=== PATIENT | male | born 1950 | race Caucasian/White ===

== ENCOUNTER 2016-10-16 12:11 | Day surgery (SDC) | payer OTHER ==
[2016-10-12 15:36] LABS: HEMATOCRIT 40.5 % (40.0-51.0); HEMOGLOBIN 13.9 g/dL (13.6-17.8)
[2016-10-12 15:49] LABS: BUN (BLOOD UREA NITROGEN) 13 MG/DL (6-23); CALCIUM, SERUM 9.2 MG/DL (8.5-10.4); CHLORIDE, SERUM 104 MMOL/L (96-112); CO2 (CARBON DIOXIDE) 30 MMOL/L (24-34); CREATININE 1.31 MG/DL (0.70-1.30); GFR AFRICAN AMERICAN 65 ML/MIN (>=60); GFR NON AFRICAN AMERICAN 56 ML/MIN (>=60); GLUCOSE, SERUM 101 MG/DL (60-99); POTASSIUM, SERUM 3.9 MMOL/L (3.5-5.3); SODIUM, SERUM 143 MMOL/L (135-148)
--- NOTE | ~2016-10-16 | OP ---
Record Of Operation [facility] [address] [place] [place]. [address] NAME: TERRENCE CHRISTENSEN : 50 STATUS : [facility]#: [id number] AGE: 66 ADM/REG DATE : 10/16/16 MR#: [id number] REPORT SERV DATE: 10/16/16 DICTATED BY: AGUSTIN DUARTE DATE: 10/16/16 REPORT STATUS : Draft TRANSCRIBED BY: MODL DATE: 10/16/16 DATE OF PROCEDURE: PREOPERATIVE DIAGNOSES: 1. Incarcerated bilateral inguinal hernias, left greater than right. 2. Hypertension. 3. Benign prostatic hypertrophy with urinary retention. POSTOPERATIVE DIAGNOSES: 1. Bilateral incarcerated direct and indirect inguinal hernias. 2. Benign prostatic hypertrophy with intraoperative urinary retention of 800 mL. 3. Hypertension. PROCEDURE: Robotic bilateral incarcerated direct and indirect inguinal hernias with mesh. ANESTHESIA: General. SURGEON: Agustin Duarte M.D. ELECTRICAL TRYOUT PERSON: Reece. COMPLICATIONS: None. DRAINS: None. ESTIMATED BLOOD LOSS: 30 mL. FLUIDS: 2000 mL. FINDINGS: 1. The patient was noted to have a very large direct and indirect inguinal hernias that were incarcerated as well as a large direct and a small indirect inguinal hernia on the right. 2. Upon placement of the laparoscope prior to the procedure, the patient noted to a significantly distended bladder and a Clemente was placed on the table with 800 mL of urinary retention, therefore Clemente will be left after the procedure. OPERATIVE TECHNIQUE: The patient was brought to the operating room and placed on the table in supine position. He had preoperative antibiotics. He had sequential hose in place. He voided prior to procedure. He underwent general endotracheal anesthesia, was prepped and draped in sterile fashion, and a time-out was completed. He had previous TAP blocks per the anesthesia. A 15 blade knife was used to make a supraumbilical incision in the midline, and the Veress needle was inserted, and water drop test safely performed. 15 mm of pneumoperitoneum was obtained. A 12 mm trocar was inserted through the supraumbilical incision, and there was no evidence of Veress or trocar injury upon placement of laparoscope. The patient was noted to have the above bilateral inguinal hernias with Record Of Operation [facility] [address] [facility] [place]. [address] NAME: TERRENCE CHRISTENSEN : 50 STATUS : [facility] PAT#: [id number] AGE: 66 ADM/REG DATE : 10/16/16 MR#: [id number] REPORT SERV DATE: 10/16/16 DICTATED BY: AGUSTIN DUARTE DATE: 10/16/16 REPORT STATUS : Draft TRANSCRIBED BY: GARO DATE: 10/16/16 significant urinary retention. A Clemente catheter was placed with complete decompression of the bladder. The dissection began with the patient in Trendelenburg. The patient cart was brought to the bedside and it was docked. The instruments were then inserted under direct visualization. The scissor was used to score the peritoneum from the anterior iliac spine toward the median umbilical ligament several centimeters above the superior aspect of the indirect inguinal hernia. The preperitoneal space was then entered, and careful blunt dissection ensued distally from the medial umbilical ligament medially until Cheko's ligament was completely identified. It was dissected for approximately 2 cm below the Cheko's ligament and extended past midline toward the patient's left. At this point, the dissection then proceeded for the rest of the right side. The peritoneum was carefully reduced on the lateral aspect until the pubic tract and transversus arch were identified. The direct inguinal hernia sac was then carefully dissected away from the preperitoneal fat until it was completely reduced, this dissection continued, and the peritoneum was then reduced from the cord structures. The vas and neurovascular structures were identified and preserved throughout the procedure. Direct visualization of the peritoneum confirmed that the hernia was completely reduced. Of note, the laparoscope was inserted and bilateral hernias were confirmed. The ProGrip mesh that had been previously folded with a V-Loc suture and pieces of mesh was placed into the abdomen for future use. Two pieces of mesh were placed. The first ProGrip was then positioned and unfolded and pressed to the pelvic floor. The mesh began medially to the left side of midline and was unfolded completely, it went underneath Cheko's ligament for approximately 2 cm and completely covered the entire myopectineal space. At this point, attention was turned to the left side and the dissection proceeded exactly as described for the right. The patient was noted to have a larger indirect inguinal hernia sac, and it took more dissection. The direct hernia sac on the left side was very very large and after it was reduced, it was imbricated and it was reduced and secured back to the Cheko's ligament with a single Vicryl suture, and this was not enough, so therefore a 0 V-Loc suture was placed and reduced the sac to Cheko's ligament with the V-Loc suture. This suture was left in place to secure the mesh medially to Cheko's ligament, both pieces at the end of mesh placement on the right. The complete reduction of the hernia sac was confirmed with visualization of the peritoneum and the mesh was secured in position as described for the right side. Once again, the entire myopectineal space was covered on this side as well, and the two leaves of the mesh overlapped for approximately 1 cm medially. The remaining V-Loc suture that reduced the direct sac was used to reapproximate the 2 leaves of the mesh in the midline to Cheko's ligament and was then cut after several sutures. That suture was then removed and a single V-Loc suture was used to reapproximate the peritoneum on as the pneumoperitoneum was reduced to 8 with a single suture to close both sides. This suture was also removed. There was no evidence of any other abnormalities at this point. All the ends of the patient cart was undocked and the instruments removed. The suture passer was used to close the umbilical fascia under direct visualization, and at this point, the instruments and trocars were removed, and the pneumoperitoneum was aspirated. The anterior fascia was reapproximated once again with a [id number] Vicryl sutures. The skin edges were reapproximated using interrupted subcuticular Monocryl sutures. Dermabond was applied, and he was extubated and taken to the recovery room for further monitoring. Record Of Operation [place] [id number] [facility] [place]. [address] NAME: TERRENCE CHRISTENSEN : 50 STATUS : [facility] PAT#: [id number] AGE: 66 ADM/REG DATE : 10/16/16 MR#: [id number] REPORT SERV DATE: 10/16/16 DICTATED BY: AGUSTIN DUARTE DATE: 10/16/16 REPORT STATUS : Draft TRANSCRIBED BY: GARO DATE: 10/16/16 /GARO Agustin Duarte M.D. / [id number] CC: Joe Morin NP
[~2016-10-16 12:11] MED LIST: ASAB PO; CARD60 PO; CELEBREX2 PO; CLARIT10 PO; COZAAR100 MG PO; FLOMAX4 PO; L40 PO; PRILO PO
== END 2016-10-16 21:23 | disposition home or self-care (01) ==
LOC: SDC 12:11
PROVIDERS: Surgery
PROC: 0YUA4JZ Supplement Bilateral Inguinal Region with Synthetic Substitute, Percutaneous Endoscopic Approach (ICD-10-PCS; principal; 2016-10-16 14:30)
DX: K40.00 Bilateral inguinal hernia, with obstruction, without gangrene, not specified as recurrent (principal); N40.1 Benign prostatic hyperplasia with lower urinary tract symptoms; R33.8 Other retention of urine; I10 Essential (primary) hypertension; K21.9 Gastro-esophageal reflux disease without esophagitis; M19.90 Unspecified osteoarthritis, unspecified site; Z87.891 Personal history of nicotine dependence; Z79.82 Long term (current) use of aspirin; Z79.1 Long term (current) use of non-steroidal anti-inflammatories (NSAID); Z79.899 Other long term (current) drug therapy; Z98.890 Other specified postprocedural states
CPT/HCPCS: 80048; 85014; 85018; 93005; A9270-GY; C1781; J0690; J2250; J2405; J2710; J2795; J3010

== ENCOUNTER 2016-11-07 05:05 | Inpatient (IN) | payer BC, MEDICARE ==
--- NOTE | ~2016-11-07 | OP ---
Record Of Operation [facility] [address] [place]. [address] NAME: TERRENCE CHRISTENSEN : 50 STATUS : ADM IN PAT#: [id number] AGE: 66 ADM/REG DATE : 11/07/16 MR#: [id number] REPORT SERV DATE: 11/08/16 DICTATED BY: WILLIAM VANN DATE: 11/08/16 REPORT STATUS : Draft TRANSCRIBED BY: MODL DATE: 11/08/16 DATE OF PROCEDURE: 11/08/2016 PREOPERATIVE DIAGNOSES: 1. Coronary artery disease with non-ST elevation myocardial infarction. 2. Unstable angina. 3. Hypertension. 4. Tobacco abuse, an ex-smoker. 5. Recent hernia repair. POSTOPERATIVE DIAGNOSES: 1. Coronary artery disease with non-ST elevation myocardial infarction. 2. Unstable angina. 3. Hypertension. 4. Tobacco abuse, an ex-smoker. 5. Recent hernia repair. PROCEDURES PERFORMED: 1. Urgent coronary artery bypass grafting x5, left internal mammary artery placed to left anterior descending, reverse saphenous vein graft placed to the first diagonal, reverse saphenous vein graft placed to the first obtuse marginal, reverse saphenous vein graft placed to the third obtuse marginal, reverse saphenous vein graft placed to the posterior descending artery. 2. Endoscopic vein harvest of the saphenous vein from the right leg. 3. Transesophageal echocardiography. SURGEON: William Vann M.D. ASSISTANTS: Lakesha Jin and Jimbo Butler. ANESTHESIA: General with Dr. Batool Garsia. CARDIOLOGISTS: William Cotter M.D. and Pierre Nguyen M.D. GENERAL SURGEON: Agustin Rivera M.D. INDICATIONS: This is a 66-year-old gentleman, ex-smoker who still uses smokeless tobacco. He began having lower substernal chest discomfort about three days prior to his arrival. He went to [facility] and the pain was radiating into his back and right chest. There, he underwent evaluation and underwent troponin levels. These kiera to 0.43 and the patient was transferred to [facility]. He underwent a cardiac catheterization after medical stabilization. This demonstrated significant three-vessel coronary artery disease. We were asked to see the patient for possible urgent revascularization secondary to recent non-ST elevation myocardial infarction and unstable anginal symptoms. We discussed this operation with the patient and his , and they wished to proceed. STS predicted mortality less than 2%, predicted morbidity mortality less than 10% were shared with the family. Record Of Operation [facility] [place]. [address] NAME: TERRENCE CHRISTENSEN : 50 STATUS : ADM IN PAT#: [id number] AGE: 66 ADM/REG DATE : 11/07/16 MR#: [id number] REPORT SERV DATE: 11/08/16 DICTATED BY: WILLIAM VANN DATE: 11/08/16 REPORT STATUS : Draft TRANSCRIBED BY: MODRick DATE: 11/08/16 PATHOLOGIC SPECIMENS: None. FINDINGS: 1. Cross-clamp 74 minutes, total pump time 87 minutes. 2. The LAD was a 2 mm mildly diseased vessel. A 3 mm MÉNDEZ was anastomosed to it with good runoff. 3. The first diagonal was 1.5 mm mildly diseased. A 3.5 mm RSVG was anastomosed to it with good runoff. 4. The first obtuse marginal was 1.75 mm mildly diseased. A 4 mm RSVG was anastomosed to it with good runoff. 5. The third obtuse marginal was 1.75 mm moderately diseased. A 4 mm RSVG was anastomosed to it with good runoff. 6. The posterior descending artery was 1.5 mm heavily diseased. A 3 mm RSVG was anastomosed to it with good runoff. 7. The vein quality was good and all grafts had good Doppler signal at the end of the case. 8. Transesophageal echocardiography demonstrated good ventricular function with no significant valvular pathology. PATHOLOGIC SPECIMEN: None. DESCRIPTION OF PROCEDURE: The patient was brought to the operating suite where general anesthesia was induced and airway secured with an endotracheal tube. Lines were secured by Anesthesia and Clemente catheter was placed. The patient's chest, abdomen, groin, and legs prepped with Hibiclens and ChloraPrep and draped with Ioban and sterile sheets. NAMAN probe was placed by Dr. Garsia and examination carried out in my attendance. The saphenous vein was harvested from the right leg using endoscopic technique. Briefly, the vein was cut directly down upon through a 2 cm incision placed to the left knee. Then, using VasoView trocars, the vessel was dissected from the surrounding subcutaneous tissue and fat. The side branches were identified, ligated, and divided with cautery. Once adequate length of vein had been dissected, a counter incision made up in the groin and in the lower leg where the vein was ligated, divided, and brought through the knee incision. The vein quality was good. The leg was made hemostatic and closed in layers of absorbable suture and skin closed in a subcuticular fashion. Then, a midline sternal incision was made and the sternum opened with a saw. The left hemithorax was elevated and the endothoracic fascia was incised. The side branches of the IMTIAZ were clipped and divided. Once the IMTIAZ was completely dissected, the patient was anticoagulated with heparin and chest tube was placed in the left pleural cavity. The IMTIAZ was clipped and divided distally. There was good flow through the IMTIAZ and its pedicle was infiltrated with papaverine. Next, the Aaron retractor was placed in the pericardium over the innominate vein to the diaphragm where it was T'd and tacked to the side of the chest wall. Cannulation pursestring sutures were placed and cannulation was carried out in routine manner. A Record Of Operation [place] [id number] [facility] [place]. [address] NAME: TERRENCE CHRISTENSEN : 50 STATUS : ADM IN [facility]#: [id number] AGE: 66 ADM/REG DATE : 11/07/16 MR#: [id number] REPORT SERV DATE: 11/08/16 DICTATED BY: WILLIAM VANN DATE: 11/08/16 REPORT STATUS : Draft TRANSCRIBED BY: GARO DATE: 11/08/16 retrograde cardioplegia cannula was placed in the coronary sinus. When all was in readiness, the patient was placed on cardiopulmonary bypass. The distal targets were marked out on the heart as described in the findings. Then, a heart support was placed. The aorta was crossclamped and an initial dose cold blood cardioplegia solution was given in a combination of antegrade and retrograde fashion and then in a retrograde manner following proximal anastomoses. Following the first dose of cardioplegia, the heart was positioned for the first obtuse marginal graft. Arteriotomy was made. The vein graft was trimmed and anastomosed to it with 7-0 Prolene. The vein graft was measured to the left side of the ascending aorta where it was divided. We then positioned the heart for the third obtuse marginal graft. Another arteriotomy was made and the vein graft was trimmed and anastomosed it with 7-0 Prolene. This vein graft was then measured back to the left side of the ascending aorta where it was divided. Next, the proximal ends of the two vein grafts were anastomosed to 5 mm punch aortotomies with 6-0 Prolene. Another dose of cardioplegia was given. We positioned the heart for the first diagonal graft. Arteriotomy was made and the vein graft trimmed and anastomosed to it with 7-0 Prolene. The vein graft was measured to the left side of the ascending aorta where it was divided. We then positioned the heart for the PDA graft. Arteriotomy was made in the PDA. The vein graft was trimmed and anastomosed it with 7-0 Prolene. This vein graft was then measured back to the ascending aorta where it was divided. Then, two 4.5 mm punch aortotomies were made and proximal ends of the two vein grafts were anastomosed to these sites with running sutures of 6-0 Prolene. Another dose of cardioplegia was given and warming was begun. We then positioned the heart for the LAD graft. Warming was begun. Arteriotomy was made in the mid LAD. The IMTIAZ was opened accordingly. A 1.5 mm probe would pass proximally up to the proximal lesion and then distally to the apex where there was a known stenotic lesion at the apex that could not be seen and was not open. The IMTIAZ was brought out the left chest through a notch in the pericardium over the pulmonary artery. The IMTIAZ was opened and anastomosed to the LAD with a running suture of 8-0 Prolene. The endothoracic fascia was tacked to the epicardium. The patient was placed in Trendelenburg and final dose of warm blood cardioplegia was given in a retrograde fashion. Ventricular and atrial pacing wires were placed. Following the last dose cardioplegia and deairing of the aorta, the aortic cross clamp was removed. The distal and proximal anastomoses were inspected and made hemostatic. Doppler demonstrated good flow through the grafts. The patient had a slow sinus rhythm at the beginning of the case and was paced atrially at a rate of 80. Ventilations were begun, and when the heart demonstrated good contractility, it was allowed to fill and eject. When deairing was completed, the patient was taken out of Trendelenburg, the ascending aortic vent removed and these pursestring sutures tied and reinforced. The patient was weaned from cardiopulmonary bypass with minimal inotropic support. The venous cannula was removed and these pursestring sutures tied. NAMAN examination demonstrated continued good ventricular function. There was no significant valvular pathology. Protamine was administered by Anesthesia, and following a period of hemodynamic stability, Record Of Operation [facility] [address] [place]. [address] NAME: TERRENCE CHRISTENSEN : 50 STATUS : ADM IN PAT#: [id number] AGE: 66 ADM/REG DATE : 11/07/16 MR#: [id number] REPORT SERV DATE: 11/08/16 DICTATED BY: WILLIAM VANN DATE: 11/08/16 REPORT STATUS : Draft TRANSCRIBED BY: MODL DATE: 11/08/16 the aortic cannula was removed and these pursestring sutures tied and reinforced. The patient continued do well and chest irrigated copiously with saline. Meticulous hemostasis was obtained. Hemasorb was placed along the cut edge of the sternum. Once hemostasis was assured, the pericardium was draped over the anterior surface of heart and tacked into position. Doppler demonstrated good flow through the grafts following protamine administration. Then, chest tubes were placed and sternum reapproximated with eight sternal wires. The clavipectoral fascia and linea alba closed with #1 Stratafix. The subcutaneous tissue was closed with Stratafix and the skin closed in a subcuticular fashion. The patient tolerated the procedure well. There were no complications. Sponge and needle counts were correct. DISPOSITION: The patient was left intubated, sedated, and transported to the Intensive Care Unit in stable condition. DUY/GARO William Vann M.D. / [id number] CC: Joe Melgar Jr., M.D.
--- NOTE | ~2016-11-07 | PRECARD ---
H&P [facility] [address] [facility] [place]. [address] NAME: TERRENCE CHRISTENSEN : 50 STATUS : ADM IN [facility]#: [id number] AGE: 66 ADM/REG DATE : 11/07/16 MR#: [id number] REPORT SERV DATE: 11/07/16 DICTATED BY: WILLIAM COTTER JR. DATE: 11/07/16 REPORT STATUS : Draft TRANSCRIBED BY: GARO DATE: 11/07/16 DATE OF ADMISSION: 11/07/2016 GENERAL SURGEON: Dr. Rivera. CHIEF COMPLAINT: Acute coronary syndrome. HISTORY OF PRESENT ILLNESS: A 66-year-old white male, began having new lower substernal chest pain three days ago, which intensified yesterday prompting a trip to [facility]. The chest pain radiated to his back into his right chest. No associated shortness of breath, but he had some clammy sweating with the pain. No nausea and vomiting. His EKGs thus far from the other facilities are unremarkable. His troponin at the referring hospital was 0.25 and it kiera to 0.43 here today. EKG at [facility] is still pending. Risk factors include tobacco (dips). Positive family history. Hypertension. Unknown cholesterol. Nondiabetic. ALLERGIES: NO KNOWN DRUG ALLERGIES. MEDICATIONS: Home medication list reviewed. SOCIAL HISTORY: He dips tobacco. No recreational drugs. PREVIOUS SURGICAL HISTORY: Recent herniorrhaphy. No previous history of cardiac disease. History of hypertension and dyspepsia. Arthritis. BPH. FAMILY HISTORY: Positive for coronary heart disease. PHYSICAL EXAMINATION: VITAL SIGNS: Blood pressure 103/62, pulse is 56 and regular, respirations 18, and afebrile. HEENT: No xanthelasma. NECK: No JVD at 30 degrees, no thyromegaly, no carotid bruit. LUNGS: Clear to auscultation and percussion. COR: No thrills, heaves, normal S1, S2. No gallop. No rub. No murmur. ABD: Soft, nontender, no hepatosplenomegaly, no mass. EXT: Without edema or pulse deficit. MS: Back without spine or costovertebral angle tenderness. NEURO: Symmetric findings. IMPRESSION: Acute coronary syndrome with rising troponin. Repeat EKG pending. Initial EKG unremarkable. Coronary risk factors are present. PLAN: Coronary arteriogram, possible PCI. Radial approach is possible. Oskar's test is normal. Risks and benefits of the procedure have been discussed with the patient and all H&P PRE [address] [address] NAME: TERRENCE CHRISTENSEN : 50 STATUS : ADM IN PAT#: [id number] AGE: 66 ADM/REG DATE : 11/07/16 MR#: [id number] REPORT SERV DATE: 11/07/16 DICTATED BY: WILLIAM COTTER JR. DATE: 11/07/16 REPORT STATUS : Draft TRANSCRIBED BY: GARO DATE: 11/07/16 questions answered. ELMER/GARO William Cotter Jr., M.D. / [id number] CC: Pierre Nguyen M.D.
--- NOTE | ~2016-11-07 | CN ---
Consultation Report [facility] [address] [place]. [address] NAME: TERRENCE CHRISTENSEN : 50 STATUS : ADM IN PAT#: [id number] AGE: 66 ADM/REG DATE : 11/07/16 MR#: [id number] REPORT SERV DATE: 11/08/16 DICTATED BY: EDGAR QUICK DATE: 11/08/16 REPORT STATUS : Draft TRANSCRIBED BY: MODL DATE: 11/08/16 CONSULTATION DATE OF CONSULTATION: 11/07/2016 REFERRING PHYSICIAN: Sujit Cotter M.D. REASON FOR CONSULTATION: Coronary artery disease, recent non-ST elevation myocardial infarction, consideration for coronary artery bypass grafting. CHIEF COMPLAINT: "I woke up feeling sweaty, and had chest pain." HISTORY OF PRESENT ILLNESS: This is a 66-year-old gentleman with family history of coronary disease, prior remote history of smoking cigarettes, and history of hypertension, who awakened from sleep on the with feeling sweaty, nauseated, and having chest discomfort. He went to the emergency room department at [facility], was found to have abnormal EKG and elevated troponin I and was transferred to [facility]. Here his symptoms were relieved, and he had cardiology evaluation/hospitalization. His coronary arteriogram yesterday showed two-vessel flow-limiting coronary artery disease with nonocclusive disease in the right coronary artery. We were consulted to see for possible coronary artery bypass grafting, and the patient was seen and evaluated by Dr. Vann yesterday evening. We discussed possible bypass surgery with the patient, and he indicated a desire to proceed. PRIOR MEDICAL HISTORY: Hypertension, arthritis, remote history of smoking. PRIOR SURGICAL HISTORY: Significant for bilateral inguinal hernias repaired x4, and recent excision of benign tumor from the left thigh. ALLERGIES: NONE KNOWN. MEDICATIONS AT HOME: Include vitamin D, diltiazem, multivitamin, Prilosec, and Afrin nasal spray. FAMILY HISTORY: Significant for coronary artery disease in father. SOCIAL HISTORY: He is employed in manufacturing. He is , has grown adult children. He resides in [facility]. REVIEW OF SYSTEMS: GENERAL: Negative for any recent weight change, fevers, chills, night sweats, or malaise. CV: Denies any palpitations, denies swelling of extremities, denies any paroxysmal nocturnal dyspnea, orthopnea, or history of prior heart problems or chest discomfort. RESPIRATORY: Positive for shortness of breath associated with his chest pain. Otherwise, negative. No hemoptysis. No wheezing, no chronic cough. Consultation Report [facility] [id number] [place]. [address] NAME: TERRENCE CHRISTENSEN : 50 STATUS : ADM IN PAT#: [id number] AGE: 66 ADM/REG DATE : 11/07/16 MR#: [id number] REPORT SERV DATE: 11/08/16 DICTATED BY: EDGAR QUICK DATE: 11/08/16 REPORT STATUS : Draft TRANSCRIBED BY: GARO DATE: 11/08/16 HEME/ONC: Positive for easy bruising. Negative for blood clots or free bleeding. INTEGUMENTARY: Positive for shallow open ulcer of the left thigh site of prior resection of benign tumor. NEURO: Negative. PHYSICAL EXAMINATION: GENERAL: This is a pleasant white male, in no acute distress. His height is 182.88 cm. Weight 95.48 kg. VITAL SIGNS: Blood pressure 123/67, temperature 97.8, pulse 67, respirations 16, saturation 94%. HEENT: Normocephalic, atraumatic. Pupils are equal, round, reactive to light and accommodation. Sclerae clear, conjunctivae pink. Oral and buccal mucosa are pink and moist. He has upper dentures and lower partial plate in place. Mallampati class 2 airway. NECK: Supple. No restricted range of motion. No carotid bruits, no jugular venous distention. CHEST: No deformity, no use of accessory muscles, no chest wall tenderness. He has bilateral present equal breath sounds. No adventitious sounds. CV: Regular rate and rhythm without murmur or rub. He has palpable symmetric central peripheral pulses, no clubbing, no cyanosis, no edema, no varicosities. ABDOMEN: Soft, obese, nontender with normoactive bowel sounds. No hepatosplenomegaly. /RECTAL: Declined. MUSCULOSKELETAL: Mild thoracic kyphosis. No scoliosis. No asymmetry. NEUROLOGIC: He is alert and oriented to day, date, place, and situation, speech is clear, fluent. No focal deficits. Upper and lower extremities strength is symmetric. He has no tremors. SKIN, HAIR, AND NAILS: No lesions, masses, or rashes. DATA: His coronary arteriogram which were reviewed showing flow-limiting coronary artery disease in the circumflex, left anterior descending and diagonal, and non-flow limiting disease in the right coronary artery. Left ventricular function is mildly diminished with ejection fraction of 40%. EKG shows sinus rhythm. CURRENT LAB: Sodium is 145, potassium 4.1, chloride 108, CO2 of 31, BUN 18, creatinine 0.95. Troponin I was elevated at 0.3. His CBC is unremarkable. IMPRESSION: 1. Recent non-ST elevation myocardial infarction. 2. Two-vessel coronary artery disease with mildly reduced left ventricular function. 3. History of hypertension. PLAN: Surgical revascularization with coronary artery bypass grafting was discussed with the patient by Dr. Vann last evening. He talked about the surgery, usual perioperative course, indications, benefits, and risks, which are listed in his note. The patient indicates his understanding and is willing to proceed. Using Society of Thoracic Surgeons database for risk prediction, predicted mortality was 0.677%, any morbidity or mortality of Consultation Report [address] [address] NAME: TERRENCE CHRISTENSEN : 50 STATUS : ADM IN PAT#: [id number] AGE: 66 ADM/REG DATE : 11/07/16 MR#: [id number] REPORT SERV DATE: 11/08/16 DICTATED BY: EDGAR QUICK DATE: 11/08/16 REPORT STATUS : Draft TRANSCRIBED BY: MODRick DATE: 11/08/16 8.056%. This was shared with the patient, and he indicates his understanding and wishes to proceed. Plan is for surgical revascularization later this afternoon. We appreciate very much the opportunity to participate in this gentleman's care. Sincerely, MSL/MODL Edgar Quick N.P. / [id number] CC: Joe Melgar NP
--- NOTE | ~2016-11-07 | DS ---
Discharge Summary [facility] [address] [place]. [address] NAME: TERRENCE CHRISTENSEN : 50 STATUS : DIS IN PAT#: [id number] AGE: 66 ADM/REG DATE : 11/07/16 MR#: [id number] REPORT SERV DATE: 11/20/16 DICTATED BY: WILLIAM ACOSTA JR. DATE: 11/20/16 REPORT STATUS : Draft TRANSCRIBED BY: GARO DATE: 11/20/16 Data Collection from hospitalization DISCHARGE DIAGNOSES: 1. Recent rmi-JT-ycingmogo myocardial infarction. 2. Coronary artery disease status post coronary artery bypass grafting. 3. Hypertension. 4. Former smoker. 5. Arthritis. CONSULTATION: Edgar Koo N.P. PROCEDURES PERFORMED: 1. Cardiac catheterization, 11/07/2016. 2. Urgent coronary artery bypass grafting x5 with MÉNDEZ to the LAD, reverse saphenous vein graft to the first diagonal, reverse saphenous vein graft to the first obtuse marginal, reverse saphenous vein graft to the third obtuse marginal, reverse saphenous vein graft placed to the posterior descending artery. 3. Endoscopic vein harvest of the saphenous vein from the right leg. 4. Transesophageal echocardiography, 11/08/2016. 5. Carotid blood flow study, 11/08/2016. MEDICATIONS: Cordarone 200 mg twice a day, aspirin 81 mg every morning, Lipitor 40 mg at bedtime, Celebrex 200 mg every morning, vitamin D 5000 units daily as instructed, Plavix 75 mg daily, Lasix 40 mg every morning, [place] 10/325 one tablet every six hours as needed, Claritin 10 mg every morning, Lopressor 12.5 mg twice a day, Centrum tablets one tablet every morning, Prilosec 20 mg twice a day, aspirin nasal spray two to three sprays nasally daily as needed, Flomax 0.4 mg daily at 3 p.m. He was instructed not to continue diltiazem or losartan. CONDITION AT DISCHARGE: Stable. DISPOSITION: The patient was discharged home on a low-cholesterol, low-sodium, 1800-calorie cardiac/diabetic diet with activities as instructed. He would follow up with me, 12/10/2016 and would follow up with Dr. William Vann in three to four weeks following discharge. HOSPITAL COURSE: This is a 66-year-old man, who developed new lower substernal chest pain about three days prior to this admission, which intensified on the day prior to admission prompting a trip to the [facility]. The chest pain radiated to his back and into the right chest. There was no associated shortness of breath, but he did have some clammy sweating with the pain. He had no nausea or vomiting. His EKGs thus far from the other facilities were unremarkable. His troponin at the referring hospital was 0.25 and it kiera to 0.43 here. EKG was still pending. He was felt to have acute coronary syndrome with rising troponin. It was felt that he may need to undergo a coronary arteriogram with possible percutaneous coronary intervention. He was admitted to the hospital at this time for further evaluation and treatment. Upon admission, Oskar test was normal. The patient was taken to the [facility], where Discharge Summary [address] [place]. [address] NAME: TERRENCE CHRISTENSEN : 50 STATUS : DIS IN PAT#: [id number] AGE: 66 ADM/REG DATE : 11/07/16 MR#: [id number] REPORT SERV DATE: 11/20/16 DICTATED BY: WILLIAM ACOSTA JR. DATE: 11/20/16 REPORT STATUS : Draft TRANSCRIBED BY: GARO DATE: 11/20/16 he underwent the above-mentioned procedure by Dr. Reuben Ribera. He tolerated this well and there were no complications. He was seen by Edgar Koo. The patient was felt to have had a recent fce-ZO-xirfhjjut myocardial infarction. His coronary arteriogram showed two-vessel flow-limiting coronary artery disease with nonocclusive disease in the right coronary artery. It was felt that he would need to undergo a coronary artery bypass grafting. The following day, a carotid blood flow study was performed. He was taken to the operating room by Dr. William Vann, where he underwent the above-mentioned procedure. He tolerated this well and there were no complications. On postop day one, his lungs were clear. His abdomen was soft and nontender. He had no edema. On 11/10/2016, he was in a normal sinus rhythm. Nitroglycerin paste was held. We encouraged him to increase his activity. His abdomen was benign. He was tolerating oral medications. The next day, O2 saturation ranged between 92% and 94% on room air. His pacing wires had been removed. Discharge planning was performed. He had no chest pain. White blood cell count was 14.5. On 11/12/2016, he had no new issues. He did have several bowel movements. He was able to ambulate independently. Discharge instructions were given. Due to his improved and stable condition, he was discharged home with the above-stated instructions. Information collected by: Melissa Cramer I submit the above information as my discharge summary. JV/GARO William Acosta Jr., M.D. / [id number] CC: Joe Melgar NP Michael S. Loga NJuaquin
[2016-11-07 05:51] LABS: BASOPHILS 0.4 %; BASOPHILS ABSOLUTE 0.04 10/3/uL (0.0-0.16); EOSINOPHILS 0.8 %; EOSINOPHILS ABSOLUTE 0.08 10/3/uL (0.0-0.53); HEMATOCRIT 37.9 % (40.0-51.0); HEMOGLOBIN 12.9 g/dL (13.6-17.8); IMMATURE GRANULOCYTES 0.1 %; IMMATURE GRANULOCYTES ABSOLUTE 0.01 10/3/uL (0.0-0.11); LYMPHOCYTES 25.6 %; LYMPHOCYTES ABSOLUTE 2.45 10/3/uL (0.67-4.30); MEAN CORPUSCULAR HEMOGLOB 31.4 pg (26.0-34.0); MEAN CORPUSCULAR VOLUME 92.2 fL (80-100); MEAN PLATELET VOLUME 10.6 fL (9.2-13.0); MONOCYTES 6.6 %; MONOCYTES ABSOLUTE 0.63 10/3/uL (0.21-1.20); NEUTROPHILS 66.5 %; NEUTROPHILS ABSOLUTE 6.35 10/3/uL (2.02-8.40); PLATELET COUNT 246 10/3/uL (150-400); RBC DISTRIBUTION WIDTH 14.7 % (12.0-16.0); RED CELL COUNT 4.11 10/6/uL (4.7-6.1); WHITE BLOOD CELLS 9.6 10/3/uL (4.5-10.5)
[2016-11-07 05:54] LABS: MANUAL DIFF NO %
[2016-11-07 06:00] LABS: INTERNATIONAL NORMAL RATI 1.1 UNITS (-); PARTIAL THROMBO TIME 28.4 SEC (22.5-37.2); PROTIME (NOT ORD) 14.1 SEC (12.0-14.5)
[2016-11-07 06:28] LABS: CALCIUM, SERUM 8.7 MG/DL (8.5-10.4); CHLORIDE, SERUM 107 MMOL/L (96-112); CHOL/HDL RATIO(NOT ORDER) 2.6 (0-5); CHOLESTEROL 143 MG/DL (< 200); CO2 (CARBON DIOXIDE) 27 MMOL/L (24-34); CREATININE 1.01 MG/DL (0.70-1.30); GFR AFRICAN AMERICAN 89 ML/MIN (>=60); GFR NON AFRICAN AMERICAN 77 ML/MIN (>=60); HDL CHOLESTEROL 56 MG/DL (> 39); LDL CHOLESTEROL 81 MG/DL (< 130); NON-HDL CHOLESTEROL 87 MG/DL (< 160); POTASSIUM, SERUM 3.9 MMOL/L (3.5-5.3); SGPT(ALT) 16 U/L (5-65); SODIUM, SERUM 141 MMOL/L (135-148); TRIGLYCERIDE 30 MG/DL (< 150)
[2016-11-07 06:30] LABS: BUN (BLOOD UREA NITROGEN) 21 MG/DL (6-23); GLUCOSE, SERUM 123 MG/DL (60-99)
[2016-11-07 06:32] LABS: TROPONIN I 0.43 NG/ML (<0.05)
[2016-11-07 10:10] LABS: BASOPHILS 0.3 %; BASOPHILS ABSOLUTE 0.03 10/3/uL (0.0-0.16); EOSINOPHILS 1.9 %; EOSINOPHILS ABSOLUTE 0.18 10/3/uL (0.0-0.53); HEMATOCRIT 37.5 % (40.0-51.0); HEMOGLOBIN 12.6 g/dL (13.6-17.8); IMMATURE GRANULOCYTES 0.2 %; IMMATURE GRANULOCYTES ABSOLUTE 0.02 10/3/uL (0.0-0.11); LYMPHOCYTES 31.9 %; MANUAL DIFF NO %; MEAN CORPUS HGB CONC 33.6 g/dL (32.0-36.0); MEAN CORPUSCULAR HEMOGLOB 31.1 pg (26.0-34.0); MEAN CORPUSCULAR VOLUME 92.6 fL (80-100); MEAN PLATELET VOLUME 10.6 fL (9.2-13.0); MONOCYTES 7.4 %; MONOCYTES ABSOLUTE 0.72 10/3/uL (0.21-1.20); NEUTROPHILS 58.3 %; NEUTROPHILS ABSOLUTE 5.67 10/3/uL (2.02-8.40); PLATELET COUNT 226 10/3/uL (150-400); RBC DISTRIBUTION WIDTH 14.7 % (12.0-16.0); RED CELL COUNT 4.05 10/6/uL (4.7-6.1); WHITE BLOOD CELLS 9.7 10/3/uL (4.5-10.5)
[2016-11-07 10:38] LABS: A/G RATIO 1.2 (0.7-1.9); ALBUMIN 3.5 G/DL (3.5-5.0); ALKALINE PHOSPHATASE 71 U/L (45-117); BUN (BLOOD UREA NITROGEN) 22 MG/DL (6-23); CALCIUM, SERUM 8.7 MG/DL (8.5-10.4); CHLORIDE, SERUM 107 MMOL/L (96-112); CHOL/HDL RATIO(NOT ORDER) 2.4 (0-5); CHOLESTEROL 139 MG/DL (< 200); CO2 (CARBON DIOXIDE) 33 MMOL/L (24-34); CREATININE 0.97 MG/DL (0.70-1.30); GFR AFRICAN AMERICAN 94 ML/MIN (>=60); GFR NON AFRICAN AMERICAN 81 ML/MIN (>=60); GLOBULIN 2.9 G/DL (2.5-4.1); GLUCOSE, SERUM 105 MG/DL (60-99); HDL CHOLESTEROL 57 MG/DL (> 39); LDL CHOLESTEROL 74 MG/DL (< 130); NON-HDL CHOLESTEROL 82 MG/DL (< 160); POTASSIUM, SERUM 4.1 MMOL/L (3.5-5.3); SGOT(AST) 14 U/L (5-40); SGPT(ALT) 17 U/L (5-65); SODIUM, SERUM 145 MMOL/L (135-148); TOTAL BILIRUBIN 0.4 MG/DL (0-1.2); TOTAL PROTEIN 6.4 G/DL (6.0-8.5); TRIGLYCERIDE 44 MG/DL (< 150)
[2016-11-07] MEDS ORDERED: L40 PO (21:12)
[2016-11-07] MEDS ORDERED: CARD60 PO (21:12)
[2016-11-07] MEDS ORDERED: CELEBREX2 PO (21:12)
[2016-11-07] MEDS ORDERED: FLOMAX4 PO (21:13)
[2016-11-07] MEDS ORDERED: PRILO PO (21:13)
[2016-11-07] MEDS ORDERED: COZAAR100 MG PO (21:13)
[2016-11-07] MEDS ORDERED: ASAB PO (21:15)
[2016-11-07] MEDS ORDERED: CLARIT10 PO (21:17)
[2016-11-07] MEDS ORDERED: D 5000 PO (21:18)
[2016-11-07] MEDS ORDERED: AFRIN15 NAS (21:20)
[2016-11-07] MEDS ORDERED: CENTRUM PO (21:20)
[2016-11-08 00:50] LABS: ASCORBIC ACID (UR NOT ORDER) NEG (NEG); BILIRUBIN, URINE NEGATIVE (NEG); KETONE, URINE NEGATIVE (NEG); LEUKOCYTE ESTERASE(NOT OR NEG (NEG); WBC (NOT ORDERED) (RFLEX) < 1 (0-5)
[2016-11-08 04:17] LABS: BASOPHILS 0.6 %; BASOPHILS ABSOLUTE 0.05 10/3/uL (0.0-0.16); EOSINOPHILS 1.7 %; EOSINOPHILS ABSOLUTE 0.15 10/3/uL (0.0-0.53); HEMOGLOBIN 12.3 g/dL (13.6-17.8); IMMATURE GRANULOCYTES 0.1 %; IMMATURE GRANULOCYTES ABSOLUTE 0.01 10/3/uL (0.0-0.11); LYMPHOCYTES 25.7 %; MEAN CORPUS HGB CONC 33.2 g/dL (32.0-36.0); MEAN CORPUSCULAR HEMOGLOB 31.1 pg (26.0-34.0); MEAN CORPUSCULAR VOLUME 93.4 fL (80-100); MONOCYTES 7.7 %; MONOCYTES ABSOLUTE 0.69 10/3/uL (0.21-1.20); NEUTROPHILS 64.2 %; NEUTROPHILS ABSOLUTE 5.75 10/3/uL (2.02-8.40); PLATELET COUNT 229 10/3/uL (150-400); RBC DISTRIBUTION WIDTH 14.8 % (12.0-16.0); RED CELL COUNT 3.96 10/6/uL (4.7-6.1)
[2016-11-08 04:26] LABS: % IRON SAT 11 % (20-50); A/G RATIO 1.2 (0.7-1.9); ALBUMIN 3.2 G/DL (3.5-5.0); ALKALINE PHOSPHATASE 67 U/L (45-117); CALCIUM, SERUM 8.7 MG/DL (8.5-10.4); CHLORIDE, SERUM 108 MMOL/L (96-112); CO2 (CARBON DIOXIDE) 31 MMOL/L (24-34); CPK 51 U/L (0-200); CPK (IF ELEVATED MB BANDS) 51 U/L (0-200); CREATININE 0.95 MG/DL (0.70-1.30); GFR AFRICAN AMERICAN 96 ML/MIN (>=60); GFR NON AFRICAN AMERICAN 83 ML/MIN (>=60); GLOBULIN 2.7 G/DL (2.5-4.1); GLUCOSE, SERUM 106 MG/DL (60-99); IRON BINDING CAPACITY 204 MCG/DL (250-450); IRON, SERUM 23 MCG/DL (35-150); POTASSIUM, SERUM 4.1 MMOL/L (3.5-5.3); SGOT(AST) 14 U/L (5-40); SGPT(ALT) 13 U/L (5-65); SODIUM, SERUM 145 MMOL/L (135-148); TOTAL BILIRUBIN 0.5 MG/DL (0-1.2); TOTAL PROTEIN 5.9 G/DL (6.0-8.5)
[2016-11-08 04:27] LABS: BUN (BLOOD UREA NITROGEN) 18 MG/DL (6-23); CK-MB 3.4 NG/ML; TROPONIN I 0.85 NG/ML (<0.05)
[2016-11-08 04:29] LABS: MANUAL DIFF NO %
[2016-11-08 04:43] LABS: INTERNATIONAL NORMAL RATI 1.1 UNITS (-); PROTIME (NOT ORD) 13.7 SEC (12.0-14.5)
[2016-11-08 04:44] LABS: PARTIAL THROMBO TIME 47.9 SEC (22.5-37.2)
[2016-11-08 20:59] LABS: BE (BASE EXCESS) -0.1 MEQ/L (0 +/- 2.5); HEMOBLOGIN CONTENT 12.3 G/DL (14-18); INSTRUMENT SERIAL # 11843; METHEMOGLOBIN 0.7 % (0-3); MODE SIMV; O2 CONTENT 17.6 VOL% (18-24); OPERATOR ID 13861; PCO2 (CO2 TENSION) 37 MMHG (35-45); PO2 (O2 TENSION) 261 MMHG (79-93); SAMPLE Arterial; TIDAL VOLUME 800 ML; pH 7.43 (7.37-7.43)
[2016-11-08 21:27] LABS: HEMATOCRIT 34.4 % (40.0-51.0); HEMOGLOBIN 11.6 g/dL (13.6-17.8); MEAN CORPUS HGB CONC 33.7 g/dL (32.0-36.0); MEAN CORPUSCULAR HEMOGLOB 30.9 pg (26.0-34.0); MEAN CORPUSCULAR VOLUME 91.5 fL (80-100); RBC DISTRIBUTION WIDTH 14.5 % (12.0-16.0); RED CELL COUNT 3.76 10/6/uL (4.7-6.1)
[2016-11-08 21:31] LABS: PLATELET COUNT 151 10/3/uL (150-400); WHITE BLOOD CELLS 16.8 10/3/uL (4.5-10.5)
[2016-11-08 21:32] LABS: MANUAL DIFF YES %
[2016-11-08 21:36] LABS: INTERNATIONAL NORMAL RATI 1.3 UNITS (-)
[2016-11-08 21:39] LABS: PROTIME (NOT ORD) 16.2 SEC (12.0-14.5)
[2016-11-08 21:40] LABS: BUN (BLOOD UREA NITROGEN) 15 MG/DL (6-23); CALCIUM, SERUM 8.5 MG/DL (8.5-10.4); CHLORIDE, SERUM 114 MMOL/L (96-112); CO2 (CARBON DIOXIDE) 28 MMOL/L (24-34); CREATININE 0.93 MG/DL (0.70-1.30); GFR AFRICAN AMERICAN 99 ML/MIN (>=60); GFR NON AFRICAN AMERICAN 85 ML/MIN (>=60); SODIUM, SERUM 147 MMOL/L (135-148)
[2016-11-08 21:41] LABS: GLUCOSE, SERUM 76 MG/DL (60-99); POTASSIUM, SERUM 3.2 MMOL/L (3.5-5.3)
[2016-11-08 21:50] LABS: BAND NEUTROPHILS 6 %; BASOPHILS 1 %; BASOPHILS ABSOLUTE (CALC) 0.17 10/3/uL (0.0-0.16); LYMPHOCYTES 4 %; LYMPHOCYTES ABSOLUTE (CALC) 0.67 10/3/uL (0.67-4.30); MONOCYTES 1 %; MONOCYTES ABSOLUTE (CALC) 0.17 10/3/uL (0.21-1.20); NEUTROPHILS ABSOLUTE (CALC) 15.79 10/3/uL (2.02-8.40); PLATELET ESTIMATE ADQ (ADEQUATE); RBC MORPHOLOGY NORM (NORMAL); SEGMENTED NEUTROPHIL (0) 88 %; TOTAL NUCLEATED CELLS 100
[2016-11-09 03:18] LABS: BE (BASE EXCESS) -5.5 MEQ/L (0 +/- 2.5); INSTRUMENT SERIAL # 11843; PCO2 (CO2 TENSION) 29 MMHG (35-45); PO2 (O2 TENSION) 72 MMHG (79-93); pH 7.41 (7.37-7.43)
[2016-11-09 03:19] LABS: CARBOXYHEMOGLOBIN 0.1 % (0-3); DEVICE NC; METHEMOGLOBIN 0.5 % (0-3); O2 CONTENT 15.8 VOL% (18-24); OPERATOR ID 13861; SAMPLE Arterial
[2016-11-09 04:51] LABS: BASOPHILS 0.1 %; BASOPHILS ABSOLUTE 0.01 10/3/uL (0.0-0.16); EOSINOPHILS 0 %; HEMATOCRIT 34.5 % (40.0-51.0); HEMOGLOBIN 11.7 g/dL (13.6-17.8); IMMATURE GRANULOCYTES 0.4 %; IMMATURE GRANULOCYTES ABSOLUTE 0.08 10/3/uL (0.0-0.11); LYMPHOCYTES 4.2 %; LYMPHOCYTES ABSOLUTE 0.82 10/3/uL (0.67-4.30); MEAN CORPUS HGB CONC 33.9 g/dL (32.0-36.0); MEAN CORPUSCULAR VOLUME 91.3 fL (80-100); MEAN PLATELET VOLUME 10.5 fL (9.2-13.0); MONOCYTES 2.2 %; MONOCYTES ABSOLUTE 0.42 10/3/uL (0.21-1.20); NEUTROPHILS 93.1 %; NEUTROPHILS ABSOLUTE 18.18 10/3/uL (2.02-8.40); PLATELET COUNT 176 10/3/uL (150-400); RBC DISTRIBUTION WIDTH 14.5 % (12.0-16.0); RED CELL COUNT 3.78 10/6/uL (4.7-6.1); WHITE BLOOD CELLS 19.5 10/3/uL (4.5-10.5)
[2016-11-09 04:56] LABS: MANUAL DIFF NO %
[2016-11-09 05:05] LABS: BUN (BLOOD UREA NITROGEN) 18 MG/DL (6-23); CALCIUM, SERUM 8.2 MG/DL (8.5-10.4); CHLORIDE, SERUM 116 MMOL/L (96-112); CO2 (CARBON DIOXIDE) 25 MMOL/L (24-34); CREATININE 1.03 MG/DL (0.70-1.30); GFR AFRICAN AMERICAN 87 ML/MIN (>=60); GFR NON AFRICAN AMERICAN 75 ML/MIN (>=60); GLUCOSE, SERUM 74 MG/DL (60-99); SODIUM, SERUM 148 MMOL/L (135-148)
[2016-11-09 16:36] LABS: BASOPHILS 0 %; EOSINOPHILS 0 %; HEMATOCRIT 32.7 % (40.0-51.0); IMMATURE GRANULOCYTES 0.4 %; IMMATURE GRANULOCYTES ABSOLUTE 0.09 10/3/uL (0.0-0.11); LYMPHOCYTES 6.2 %; LYMPHOCYTES ABSOLUTE 1.31 10/3/uL (0.67-4.30); MANUAL DIFF NO %; MEAN CORPUS HGB CONC 33.6 g/dL (32.0-36.0); MEAN CORPUSCULAR HEMOGLOB 30.8 pg (26.0-34.0); MEAN CORPUSCULAR VOLUME 91.6 fL (80-100); MEAN PLATELET VOLUME 11.5 fL (9.2-13.0); NEUTROPHILS 85.4 %; NEUTROPHILS ABSOLUTE 18.18 10/3/uL (2.02-8.40); PLATELET COUNT 170 10/3/uL (150-400); RBC DISTRIBUTION WIDTH 14.7 % (12.0-16.0); RED CELL COUNT 3.57 10/6/uL (4.7-6.1); WHITE BLOOD CELLS 21.3 10/3/uL (4.5-10.5)
[2016-11-09 16:47] LABS: BUN (BLOOD UREA NITROGEN) 20 MG/DL (6-23); CALCIUM, SERUM 8.3 MG/DL (8.5-10.4); CHLORIDE, SERUM 110 MMOL/L (96-112); CO2 (CARBON DIOXIDE) 26 MMOL/L (24-34); CREATININE 1.08 MG/DL (0.70-1.30); GFR AFRICAN AMERICAN 82 ML/MIN (>=60); GFR NON AFRICAN AMERICAN 71 ML/MIN (>=60); POTASSIUM, SERUM 4.6 MMOL/L (3.5-5.3)
[2016-11-09 16:48] LABS: GLUCOSE, SERUM 135 MG/DL (60-99); SODIUM, SERUM 140 MMOL/L (135-148)
[2016-11-10 06:07] LABS: HEMOGLOBIN 10.6 g/dL (13.6-17.8); MEAN CORPUS HGB CONC 33.1 g/dL (32.0-36.0); MEAN CORPUSCULAR HEMOGLOB 30.9 pg (26.0-34.0); MEAN CORPUSCULAR VOLUME 93.3 fL (80-100); MEAN PLATELET VOLUME 11.4 fL (9.2-13.0); PLATELET COUNT 150 10/3/uL (150-400); RBC DISTRIBUTION WIDTH 15.3 % (12.0-16.0); RED CELL COUNT 3.43 10/6/uL (4.7-6.1); WHITE BLOOD CELLS 17.4 10/3/uL (4.5-10.5)
[2016-11-10 06:13] LABS: MANUAL DIFF YES %
[2016-11-10 06:14] LABS: INTERNATIONAL NORMAL RATI 1.2 UNITS (-); PROTIME (NOT ORD) 15.4 SEC (12.0-14.5)
[2016-11-10 06:23] LABS: BUN (BLOOD UREA NITROGEN) 20 MG/DL (6-23); CALCIUM, SERUM 8.4 MG/DL (8.5-10.4); CHLORIDE, SERUM 112 MMOL/L (96-112); CO2 (CARBON DIOXIDE) 26 MMOL/L (24-34); CPK (IF ELEVATED MB BANDS) 337 U/L (0-200); CREATININE 1.14 MG/DL (0.70-1.30); GFR AFRICAN AMERICAN 77 ML/MIN (>=60); GFR NON AFRICAN AMERICAN 67 ML/MIN (>=60); GLUCOSE, SERUM 134 MG/DL (60-99); POTASSIUM, SERUM 4.7 MMOL/L (3.5-5.3); SODIUM, SERUM 141 MMOL/L (135-148)
[2016-11-10 06:26] LABS: TROPONIN I 1.24 NG/ML (<0.05)
[2016-11-10 06:31] LABS: LYMPHOCYTES 13 %; LYMPHOCYTES ABSOLUTE (CALC) 2.26 10/3/uL (0.67-4.30); MONOCYTES 3 %; MONOCYTES ABSOLUTE (CALC) 0.52 10/3/uL (0.21-1.20); NEUTROPHILS ABSOLUTE (CALC) 14.62 10/3/uL (2.02-8.40); PLATELET ESTIMATE ADQ (ADEQUATE); SEGMENTED NEUTROPHIL (0) 84 %; TOTAL NUCLEATED CELLS 100
[2016-11-10 06:32] LABS: RBC MORPHOLOGY NORM (NORMAL)
[2016-11-10 07:23] LABS: CK-MB 3.5 NG/ML
[2016-11-11 06:32] LABS: BASOPHILS 0.1 %; BASOPHILS ABSOLUTE 0.02 10/3/uL (0.0-0.16); EOSINOPHILS 0.2 %; EOSINOPHILS ABSOLUTE 0.03 10/3/uL (0.0-0.53); HEMATOCRIT 31.9 % (40.0-51.0); HEMOGLOBIN 10.9 g/dL (13.6-17.8); IMMATURE GRANULOCYTES 0.2 %; IMMATURE GRANULOCYTES ABSOLUTE 0.03 10/3/uL (0.0-0.11); LYMPHOCYTES 15.5 %; LYMPHOCYTES ABSOLUTE 2.26 10/3/uL (0.67-4.30); MEAN CORPUS HGB CONC 34.2 g/dL (32.0-36.0); MEAN CORPUSCULAR HEMOGLOB 31.2 pg (26.0-34.0); MEAN CORPUSCULAR VOLUME 91.4 fL (80-100); MEAN PLATELET VOLUME 11.3 fL (9.2-13.0); MONOCYTES 11.6 %; MONOCYTES ABSOLUTE 1.68 10/3/uL (0.21-1.20); NEUTROPHILS 72.4 %; NEUTROPHILS ABSOLUTE 10.52 10/3/uL (2.02-8.40); PLATELET COUNT 142 10/3/uL (150-400); RBC DISTRIBUTION WIDTH 15.1 % (12.0-16.0); RED CELL COUNT 3.49 10/6/uL (4.7-6.1); WHITE BLOOD CELLS 14.5 10/3/uL (4.5-10.5)
[2016-11-11 06:34] LABS: MANUAL DIFF NO %
[2016-11-11 06:43] LABS: BUN (BLOOD UREA NITROGEN) 17 MG/DL (6-23); CALCIUM, SERUM 8.8 MG/DL (8.5-10.4); CHLORIDE, SERUM 109 MMOL/L (96-112); CO2 (CARBON DIOXIDE) 27 MMOL/L (24-34); CREATININE 0.88 MG/DL (0.70-1.30); GFR AFRICAN AMERICAN 104 ML/MIN (>=60); GFR NON AFRICAN AMERICAN 90 ML/MIN (>=60); GLUCOSE, SERUM 122 MG/DL (60-99); POTASSIUM, SERUM 4.1 MMOL/L (3.5-5.3); SODIUM, SERUM 143 MMOL/L (135-148)
[2016-11-12 03:49] LABS: BASOPHILS 0.2 %; BASOPHILS ABSOLUTE 0.02 10/3/uL (0.0-0.16); EOSINOPHILS 0.6 %; EOSINOPHILS ABSOLUTE 0.07 10/3/uL (0.0-0.53); HEMOGLOBIN 10.9 g/dL (13.6-17.8); IMMATURE GRANULOCYTES 0.2 %; IMMATURE GRANULOCYTES ABSOLUTE 0.03 10/3/uL (0.0-0.11); LYMPHOCYTES 21.3 %; LYMPHOCYTES ABSOLUTE 2.69 10/3/uL (0.67-4.30); MEAN CORPUS HGB CONC 34.1 g/dL (32.0-36.0); MEAN CORPUSCULAR HEMOGLOB 31.1 pg (26.0-34.0); MEAN CORPUSCULAR VOLUME 91.2 fL (80-100); MEAN PLATELET VOLUME 11.1 fL (9.2-13.0); MONOCYTES 10.4 %; MONOCYTES ABSOLUTE 1.31 10/3/uL (0.21-1.20); NEUTROPHILS 67.3 %; NEUTROPHILS ABSOLUTE 8.52 10/3/uL (2.02-8.40); PLATELET COUNT 172 10/3/uL (150-400); RED CELL COUNT 3.51 10/6/uL (4.7-6.1); WHITE BLOOD CELLS 12.6 10/3/uL (4.5-10.5)
[2016-11-12 03:52] LABS: MANUAL DIFF NO %
[2016-11-12] MEDS ORDERED: NORCO1 TAB PO (10:23)
[2016-11-12] MEDS ORDERED: LIPITOR40 PO (10:28)
[2016-11-12] MEDS ORDERED: PLAVIX PO (10:28)
[2016-11-12] MEDS ORDERED: CORDARONE PO (10:29)
[2016-11-12] MEDS ORDERED: LOP25 PO (10:29)
== END 2016-11-12 11:43 | disposition home or self-care (01) | DRG 234 ==
LOC: 5NO 05:05 → SDC/OF 11-08 14:37 → CVICU 11-08 18:16 → 5NO 11-09 13:43
PROVIDERS: Internal Medicine Cardiovascular Disease; Internal Medicine Interventional Cardiology; Thoracic Surgery (Cardiothoracic Vascular Surgery)
PROC: 4A023N7 Measurement of Cardiac Sampling and Pressure, Left Heart, Percutaneous Approach (ICD-10-PCS; principal; 2016-11-07)
PROC: 021309W Bypass Coronary Artery, Four or More Arteries from Aorta with Autologous Venous Tissue, Open Approach (ICD-10-PCS; 2016-11-07)
PROC: B2111ZZ Fluoroscopy of Multiple Coronary Arteries using Low Osmolar Contrast (ICD-10-PCS; 2016-11-07)
PROC: B2151ZZ Fluoroscopy of Left Heart using Low Osmolar Contrast (ICD-10-PCS; 2016-11-07)
PROC: 02100Z9 Bypass Coronary Artery, One Artery from Left Internal Mammary, Open Approach (ICD-10-PCS; 2016-11-07)
PROC: 06BP4ZZ Excision of Right Saphenous Vein, Percutaneous Endoscopic Approach (ICD-10-PCS; 2016-11-08)
PROC: 5A1221Z Performance of Cardiac Output, Continuous (ICD-10-PCS; 2016-11-08)
PROC: B246ZZ4 Ultrasonography of Right and Left Heart, Transesophageal (ICD-10-PCS; 2016-11-08)
DX: I21.4 Non-ST elevation (NSTEMI) myocardial infarction (principal); I10 Essential (primary) hypertension; I25.10 Atherosclerotic heart disease of native coronary artery without angina pectoris; Z98.890 Other specified postprocedural states; F17.290 Nicotine dependence, other tobacco product, uncomplicated
CPT/HCPCS: 31720; 36415; 71010; 71020; 80048; 80053; 80061; 81001; 82330; 82550; 82553; 82803; 82805; 82947; 82962; 83036; 83540; 83550; 83735; 84132; 84295; 84460; 84484; 85014; 85025; 85347; 85610; 85730; 86850; 86900; 86901; 93005; 93306; 93312; 93320; 93325; 93458; 93880; 94002; 94640; 94660; 94770; 97161-GP; 99152; A9270-GY; C1713; C1769; C1894; J0690; J1644; J2150; J2250; J2370; J2440; J2720; J2795; J2930; J3010; J3370; J3475; J3480; P9045; P9047; Q9967